=== PATIENT | male | born 1970 | race Caucasian/White ===

== ENCOUNTER 2018-10-05 16:34 | Emergency (ER) | payer BC ==
[2018-10-05] MEDS ORDERED: Lidocaine 1% 20 ML MDV ONE (17:00)
--- NOTE | 2018-10-06 12:21 | EDM.PDOC ---
ED HPI GENERAL MEDICAL PROBLEM - General Stated Complaint: fish hook right hand Time Seen by Provider: 10/05/18 16:40 Source of Information: Reports: Patient History Limitations: Reports: No Limitations - History of Present Illness INITIAL COMMENTS - FREE TEXT/NARRATIVE: Pt is 47 year old male who was fishing and accidentally got the fish hook lodged in the thenar eminence of his right hand. he did try to remove the hook wand was unsuccessful and hence here. No pain or discomfort in the hand. His last tetanus was in 2010. No other complaints. Onset: Today Onset Date: 10/05/18 Onset Time: 16:00 Improves with: Reports: None Worsens with: Reports: None Associated Symptoms: Denies: Confusion, Fever/Chills, Rash, Seizure ED ROS GENERAL - Review of Systems Review Of Systems: See Below Constitutional: Denies: Fever, Chills HEENT: Denies: Rhinitis, Throat Pain Respiratory: Denies: Cough, Sputum Cardiovascular: Denies: Chest Pain, Lightheadedness GI/Abdominal: Denies: Nausea, Vomiting Musculoskeletal: Denies: Joint Pain, Joint Swelling Skin: Reports: Wound. Denies: Bruising, Pruritis, Rash ED EXAM, GENERAL - Physical Exam Exam: See Below Exam Limited By: No Limitations General Appearance: Alert, WD/WN, No Apparent Distress, Obese Eye Exam: Bilateral Eye: EOMI, PERRL Ears: Normal External Exam, Normal Canal, Hearing Grossly Normal, Normal TMs Ear Exam: Bilateral Ear: Auricle Normal, Canal Normal, TM normal Nose: Normal Inspection, Normal Mucosa, No Blood Throat/Mouth: Normal Inspection, Normal Lips, Normal Teeth, Normal Gums, Normal Oropharynx, Normal Voice, No Airway Compromise Head: Atraumatic, Normocephalic Neck: Normal Inspection, Supple, Non-Tender, Full Range of Motion Respiratory/Chest: No Respiratory Distress, Lungs Clear, Normal Breath Sounds, No Accessory Muscle Use, Chest Non-Tender Cardiovascular: Normal Peripheral Pulses, Regular Rate, Rhythm, No Edema, No Gallop, No JVD, No Murmur, No Rub Extremities: Normal Inspection, Normal Range of Motion, Non-Tender, Normal Capillary Refill, No Pedal Edema Neurological: Alert, Oriented Skin Exam: Warm, Intact, Other (Right hand: there is a fish hook noted over the thenar eminence. minimal tender to pressure. not acitvely bleeding.) Course - Vital Signs Text/Narrative:: Pt reassured. After consent was obtained, fish hook was removed under aseptic precautions. Simple dressing with antibiotic ointment applied. advised to keep the area clean and dry until it heals. Infection precaution discussed. Followup with his PCP next week. - Orders/Labs/Meds Meds: Medications Discontinued Medications Generic Name Dose Route Start Last Admin Trade Name Josh PRN Reason Stop Dose Admin Lidocaine HCl 20 ml 10/05/18 17:00 Xylocaine 1% .ROUTE 10/05/18 17:01 .STK-MED ONE Departure - Departure Time of Disposition: 17:00 Disposition: Home, Self-Care 01 Condition: Fair Clinical Impression: Fish hook injury of hand - Discharge Information *PRESCRIPTION DRUG MONITORING PROGRAM REVIEWED*: Not Applicable *COPY OF PRESCRIPTION DRUG MONITORING REPORT IN PATIENT MT: Not Applicable - Problem List & Annotations (1) Fish hook injury of hand SNOMED Code(s): 824965200 Code(s): S69.90XA - UNSP INJURY OF UNSP WRIST, HAND AND FINGER(S), INIT ENCNTR Status: Acute - Problem List Review Problem List Initiated/Reviewed/Updated: Yes - Assessment/Plan Assessment:: Right hand fishhook Plan: Pt reassured. After consent was obtained, fish hook was removed under aseptic precautions. Simple dressing with antibiotic ointment applied. advised to keep the area clean and dry until it heals. Infection precaution discussed. Followup with his PCP next week.
== END 2018-10-05 17:00 | disposition home or self-care (01) ==
LOC: LB.ED 16:34
DX: S60.551A Superficial foreign body of right hand, initial encounter (principal); W45.8XXA Other foreign body or object entering through skin, initial encounter
CPT/HCPCS: 99283; J2001